=== PATIENT | female | born 1995 | race American Indian/Alaskan Native ===

== ENCOUNTER 2016-07-08 19:32 | Emergency (ER) | payer BC ==
--- NOTE | 2016-07-09 04:24 | Emergency Department Report ---
ED Female HPI - General Chief complaint: Urogenital-Female Stated complaint: VAGINAL PAIN Time Seen by Provider: 07/09/16 04:19 Source: patient Mode of arrival: Ambulatory Limitations: No Limitations - History of Present Illness Initial comments: 20-year-old -[place] female comes in complaint of vaginal pain. Patient believes she has a herpes outbreak. He was resisting by her [employer] doctor was treated for bacterial vaginosis as well as given a pill for candidiasis area he now comes in for vaginal pain has been going on for 2-3 days. She reports that it blanc when she urinates and she is having pain on the outer labia. MD Complaint: possible STD - Related Data Previous Rx's Medication Instructions Recorded Last Taken Type Valacyclovir HCl [Valtrex] 1,000 mg PO BID #20 tab 07/09/16 Unknown Rx Allergies Allergy/AdvReac Type Severity Reaction Status Date / Time No Known Allergies Allergy Unverified 05/16/16 17:09 ED Review of Systems ROS: Stated complaint: VAGINAL PAIN Other details as noted in HPI Constitutional: denies: chills, fever Eyes: denies: eye pain, eye discharge, vision change ENT: denies: ear pain, throat pain Respiratory: denies: cough, shortness of breath, wheezing Cardiovascular: denies: chest pain, palpitations Endocrine: no symptoms reported Gastrointestinal: denies: abdominal pain, nausea, diarrhea Genitourinary: dyspareunia. denies: urgency, dysuria, discharge Musculoskeletal: denies: back pain, joint swelling, arthralgia Skin: lesions (vaginal) Neurological: denies: headache, weakness, paresthesias Psychiatric: denies: anxiety, depression ED Past Medical Hx - Past Medical History Previous Medical History?: Yes Additional medical history: Type 1 herpes - Surgical History Past Surgical History?: No - Social History Smoking Status: Former Smoker Substance Use Type: None - Medications Home Medications: Home Medications Medication Instructions Recorded Confirmed Last Taken Type Valacyclovir HCl [Valtrex] 1,000 mg PO BID #20 tab 07/09/16 Unknown Rx ED Physical Exam - General Limitations: No Limitations General appearance: alert, in no apparent distress - Head Head exam: Present: atraumatic, normocephalic - Eye Eye exam: Present: normal appearance - Speculum exam: Present: vaginal discharge, cervical discharge Bi-manual exam: Present: normal bi-manual exam. Absent: cervical motion tendernes, adnexal tenderness, adnexal mass - Expanded Exam Expanded Female exam: Present: herpetic lesions (inner labia), vulvar erythema, vulvar tenderness ED Course Vital Signs 07/08/16 07/09/16 21:25 00:38 Temperature 98.6 F 98.1 F Pulse Rate 70 68 Respiratory 18 14 Rate Blood Pressure 114/72 117/63 O2 Sat by Pulse 100 100 Oximetry ED Medical Decision Making - Medical Decision Making Patient has been evaluated by this provider Natacha. Discussed with patient my findings of most likely hepatic breakout. Discussed the patient treatment plan and that she needs to follow up with her [employer] provider. Patient verbalized understanding. Critical care attestation.: If time is entered above; I have spent that time in minutes in the direct care of this critically ill patient, excluding procedure time. ED Disposition Clinical Impression: Herpes genitalis in women Disposition: DISCHARGED TO HOME OR SELFCARE Is pt being admited?: No Does the pt Need Aspirin: No Condition: Stable Instructions: Genital Herpes Simplex (ED) Additional Instructions: These take medication as prescribed. Follow-up which her behavioral assistant within the next week. Prescriptions: Valacyclovir HCl [Valtrex] 1,000 mg PO BID #20 tab Referrals: PRIMARY CARE, [Primary Care Provider] - 3-5 Days Forms: Work/School Release Form(ED), Accompanied Note
[2016-07-09 04:53] VITALS: BP 97/55
== END 2016-07-09 04:51 | disposition home or self-care (01) ==
LOC: ED 19:32
DX: A60.09 Herpesviral infection of other urogenital tract (principal); Z87.891 Personal history of nicotine dependence
CPT/HCPCS: 99283